=== PATIENT | male | born 1975 | race Caucasian/White ===

== ENCOUNTER 2023-07-27 11:51 | Inpatient (IN) | payer OTHER ==
[2023-07-27 12:41] VITALS: BMI 30.1
[2023-07-27] MEDS ORDERED: NALOXONE HCL 0.4 MG/ML VIAL IM PRN (13:27)
[2023-07-27] MEDS ORDERED: NALOXONE HCL (KLOXXADO) 8 MG SPRAY NS PRN (13:27)
[2023-07-27] MEDS ORDERED: IBUPROFEN 400 MG TABLET (FP) PO PRN (13:27)
[2023-07-27] MEDS ORDERED: BUPRENORPHINE HCL 150 MCG, BUPRENORPHINE HCL 75 MCG BC PRN (13:27)
[2023-07-27] MEDS ORDERED: POLYETHYLENE GLYCOL (HEALTHYLAX) 3350 17 GM PACKET PO PRN (13:27)
[2023-07-27] MEDS ORDERED: BENZOCAINE/MENTHOL (CHLORASEPTIC ) LOZENGE MM PRN (13:27)
[2023-07-27] MEDS ORDERED: guaiFENesin 600 MG TABLET.ER (FP) PO PRN (13:27)
[2023-07-27] MEDS ORDERED: DICYCLOMINE HCL 10 MG CAPSULE PO PRN (13:27)
[2023-07-27] MEDS ORDERED: MAGNESIUM HYDROX 2400MG/30ML ORAL SUSPENSION 30 ML CUP PO PRN (13:27)
[2023-07-27] MEDS ORDERED: BENZONATATE 200 MG CAPSULE PO PRN (13:27)
[2023-07-27] MEDS ORDERED: ONDANSETRON *ODT* 4 MG TABLET SL PRN (13:27)
[2023-07-27] MEDS ORDERED: BISMUTH SUBSALICYLATE 524 MG/30 ML PO PRN (13:27)
[2023-07-27] MEDS ORDERED: LOPERAMIDE HCL 2 MG CAPSULE PO PRN (13:27)
[2023-07-27] MEDS ORDERED: diazePAM 5 MG TABLET ONE (13:40)
[2023-07-27] MEDS ORDERED: BUPRENORPHINE HCL 150 MCG FILM BC ONE (13:41)
[2023-07-27] MEDS ORDERED: BUPRENORPHINE HCL 75 MCG FILM BC ONE (13:41)
[2023-07-27] MEDS ORDERED: cloNIDine HCL 0.1 MG TABLET ONE (13:41)
[2023-07-27] MEDS ORDERED: PRENATAL VITAMINS W/ FOLIC ACID TABLET (FP) PO ONE (13:42)
[2023-07-27] MEDS ORDERED: diazePAM 5 MG TABLET PO ONE (13:45)
[2023-07-27] MEDS ORDERED: BUPRENORPHINE HCL 150 MCG, BUPRENORPHINE HCL 75 MCG BC ONE (13:45)
[2023-07-27] MEDS ORDERED: cloNIDine HCL 0.1 MG TABLET PO ONE (13:45)
[2023-07-27] MEDS: PRENATAL VITAMINS W/ FOLIC ACID TABLET (FP) PO SCH (13:50)
[2023-07-27] MEDS: MAG HYDROX/AL HYDROX/SIMETH 30 ML UNIT-DOSE CUP PO PRN ×2 (15:46→22:09)
[2023-07-27] MEDS: diazePAM 5 MG TABLET PO SCH ×2 (17:21→22:07)
[2023-07-27] MEDS: NICOTINE 14 MG/24 HOURS TOPICAL PATCH TD PRN (17:21)
[2023-07-27] MEDS: cloNIDine HCL 0.1 MG TABLET PO PRN (20:48)
[2023-07-27] MEDS: METHOCARBAMOL 500 MG TABLET PO PRN (20:48)
[2023-07-27] MEDS ORDERED: MELATONIN 5 MG TABLETS PO SCH (22:00)
[2023-07-27] MEDS: THIAMINE HCL 100 MG TABLET (FP) PO SCH (22:06)
[2023-07-28] MEDS ORDERED: BUPRENORPHINE HCL 150 MCG, BUPRENORPHINE HCL 75 MCG BC PRN
[2023-07-28] MEDS: IBUPROFEN 600 MG TABLET (FP) PO PRN ×3 (03:03→22:19)
[2023-07-28] MEDS: cloNIDine HCL 0.1 MG TABLET PO PRN (03:04)
[2023-07-28] MEDS: diazePAM 5 MG TABLET PO PRN ×2 (03:29→14:12)
[2023-07-28] MEDS: BUPRENORPHINE HCL 150 MCG, BUPRENORPHINE HCL 75 MCG BC SCH ×2 (05:06→18:45)
[2023-07-28] MEDS: diazePAM 5 MG TABLET PO SCH ×4 (05:07→22:16)
[2023-07-28] MEDS: ACETAMINOPHEN 325 MG TABLET (FP) PO PRN (08:17)
[2023-07-28 08:23] LABS: HEMATOCRIT 47.1 % (35.4-49); HEMOGLOBIN 15.5 GM/dL (11.7-16.9); MCH 29.1 pg (25.7-33.7); MCHC 32.9 g/dl (32.0-35.9); MEAN CELL VOLUME 88.4 fl (80-96); MEAN PLT VOLUME 10.2 fl (7.5-11.1); PLATELET COUNT 213 10^3/uL (134-434); RBC 5.32 M/mm3 (4.00-5.60); RDW 14.2 % (11.9-15.9)
[2023-07-28 08:29] LABS: POTASSIUM 4.6 mmol/L (3.5-5.1)
[2023-07-28 08:37] LABS: ALBUMIN 4.5 g/dl (3.4-5.0); CALCIUM 9.7 mg/dL (8.5-10.1)
[2023-07-28 08:40] LABS: CREATININE 0.8 mg/dL (0.55-1.3)
[2023-07-28 08:42] LABS: BILIRUBIN,TOTAL 0.4 mg/dL (0.2-1); TOT PROT 8.1 g/dl (6.4-8.2)
[2023-07-28] MEDS ORDERED: NICOTINE 14 MG/24 HOURS TOPICAL PATCH TD SCH (10:00)
[2023-07-28] MEDS: PRENATAL VITAMINS W/ FOLIC ACID TABLET (FP) PO SCH (10:09)
[2023-07-28] MEDS: FAMOTIDINE 20 MG TABLET PO SCH ×2 (10:10→22:15)
[2023-07-28] MEDS: METHOCARBAMOL 500 MG TABLET PO PRN (10:11)
[2023-07-28] MEDS: NICOTINE 14 MG/24 HOURS TOPICAL PATCH TD PRN (14:15)
[2023-07-28] MEDS ORDERED: SUVOREXANT 10 MG TABLET PO PRN (22:00)
[2023-07-28] MEDS: THIAMINE HCL 100 MG TABLET (FP) PO SCH (22:16)
[2023-07-29] MEDS: diazePAM 5 MG TABLET PO PRN ×3 (03:45→21:17)
[2023-07-29] MEDS: METHOCARBAMOL 500 MG TABLET PO PRN ×2 (03:45→10:15)
[2023-07-29] MEDS: diazePAM 5 MG TABLET PO SCH ×3 (05:04→22:20)
[2023-07-29] MEDS: BUPRENORPHINE HCL 450 MCG FILM BC SCH ×2 (05:06→17:24)
[2023-07-29] MEDS: IBUPROFEN 600 MG TABLET (FP) PO PRN (07:25)
[2023-07-29] MEDS: cloNIDine HCL 0.1 MG TABLET PO PRN ×3 (07:26→22:20)
[2023-07-29] MEDS: hydrOXYzine PAMOATE 25 MG CAPSULE (FP) PO PRN ×2 (07:26→19:34)
[2023-07-29] MEDS: FAMOTIDINE 20 MG TABLET PO SCH ×2 (10:12→21:18)
[2023-07-29] MEDS: PRENATAL VITAMINS W/ FOLIC ACID TABLET (FP) PO SCH (10:12)
[2023-07-29] MEDS: ACETAMINOPHEN 325 MG TABLET (FP) PO PRN (10:18)
[2023-07-29] MEDS: THIAMINE HCL 100 MG TABLET (FP) PO SCH (21:17)
[2023-07-30] MEDS: diphenhydrAMINE HCL 25 MG CAPSULE (FP) PO PRN (00:46)
[2023-07-30] MEDS: IBUPROFEN 600 MG TABLET (FP) PO PRN ×2 (00:49→10:20)
[2023-07-30] MEDS: ACETAMINOPHEN 325 MG TABLET (FP) PO PRN (05:02)
[2023-07-30] MEDS: BUPRENORPHINE/NALOXONE 4 MG/1 MG FILM PACKET SL SCH ×2 (05:03→17:40)
[2023-07-30] MEDS: diazePAM 5 MG TABLET PO SCH ×2 (05:03→17:41)
[2023-07-30] MEDS: FAMOTIDINE 20 MG TABLET PO SCH ×2 (10:15→21:13)
[2023-07-30] MEDS: PRENATAL VITAMINS W/ FOLIC ACID TABLET (FP) PO SCH (10:15)
[2023-07-30] MEDS: diazePAM 5 MG TABLET PO PRN (10:19)
[2023-07-30] MEDS: amLODIPine BESYLATE 5 MG TABLET (FP) PO SCH (10:21)
[2023-07-30] MEDS: METHOCARBAMOL 500 MG TABLET PO PRN ×2 (16:36→22:24)
[2023-07-30] MEDS: THIAMINE HCL 100 MG TABLET (FP) PO SCH (21:13)
[2023-07-30] MEDS: cloNIDine HCL 0.1 MG TABLET PO PRN (21:13)
[2023-07-30] MEDS: hydrOXYzine PAMOATE 25 MG CAPSULE (FP) PO PRN (21:13)
[2023-07-31] MEDS: diphenhydrAMINE HCL 25 MG CAPSULE (FP) PO PRN ×2 (00:12→22:08)
[2023-07-31] MEDS ORDERED: diazePAM 5 MG TABLET PO ONE ×2 (06:00→10:30)
[2023-07-31] MEDS ORDERED: BUPRENORPHINE/NALOXONE 8 MG/2 MG FILM PACKET SL ONE (06:00)
[2023-07-31] MEDS: amLODIPine BESYLATE 5 MG TABLET (FP) PO SCH (10:17)
[2023-07-31] MEDS: PRENATAL VITAMINS W/ FOLIC ACID TABLET (FP) PO SCH (10:17)
[2023-07-31] MEDS: FAMOTIDINE 20 MG TABLET PO SCH ×2 (10:17→22:08)
[2023-07-31] MEDS: METHOCARBAMOL 500 MG TABLET PO PRN ×2 (10:21→19:49)
[2023-07-31] MEDS: IBUPROFEN 600 MG TABLET (FP) PO PRN ×2 (15:34→21:09)
[2023-07-31] MEDS: diazePAM 5 MG TABLET PO SCH (17:18)
[2023-07-31] MEDS ORDERED: cloNIDine HCL 0.1 MG TABLET PO PRN (18:14)
[2023-07-31] MEDS: hydrOXYzine PAMOATE 25 MG CAPSULE (FP) PO PRN (19:49)
[2023-07-31] MEDS: THIAMINE HCL 100 MG TABLET (FP) PO SCH (22:08)
[2023-07-31] MEDS ORDERED: diazePAM 5 MG TABLET PO PRN (23:05)
[2023-08-01] MEDS: diazePAM 5 MG TABLET PO SCH (05:22)
[2023-08-01] MEDS ORDERED: BUPRENORPHINE/NALOXONE 8 MG/2 MG FILM PACKET SL ONE (06:00)
[2023-08-01] MEDS: PRENATAL VITAMINS W/ FOLIC ACID TABLET (FP) PO SCH (09:07)
[2023-08-01] MEDS: amLODIPine BESYLATE 5 MG TABLET (FP) PO SCH (09:07)
[2023-08-01] MEDS: FAMOTIDINE 20 MG TABLET PO SCH (09:08)
[2023-08-01 10:00] VITALS: BP 148/92; PULSE 72; RESP 16; TEMP 96.8
== END 2023-08-01 09:23 | disposition home or self-care (01) | DRG 773 ==
LOC: YASAS 11:51 → Y3N 13:35 → Y6N 13:41
PROVIDERS: ADMIT Allergy & Immunology; ATTEND Surgery
PROC: HZ2ZZZZ Detoxification Services for Substance Abuse Treatment (ICD-10-PCS; principal; 2023-07-27)
DX: F11.23 Opioid dependence with withdrawal (principal); F13.20 Sedative, hypnotic or anxiolytic dependence, uncomplicated; F12.20 Cannabis dependence, uncomplicated; F17.210 Nicotine dependence, cigarettes, uncomplicated; F32.A Depression, unspecified; F41.9 Anxiety disorder, unspecified; I10 Essential (primary) hypertension; K21.9 Gastro-esophageal reflux disease without esophagitis
CPT/HCPCS: 36415; 80053; 80307; 82962; 83036; 85027; 86780; 87635; 87811; 93005; 93010